=== PATIENT | female | born 1955 | race Caucasian/White ===

== ENCOUNTER → 2017-01-17 | Day surgery (SDC) | payer OTHER ==
[~2017-01-17] MED LIST: ACID REDUCER PO; GINGER500 MG PO; IRON325 MG PO; MULTI VITAMIN1 EACH PO; OMEGA 3 1,0001 EACH PO; OMEPRAZOLE40 M1; PHENERGAN PO; VITAMIN D400 UNI2 PO; ZOLOFT
--- NOTE | ~2017-01-17 | OR ---
Unit #: [id number] #: [id number] Patient: NITIN HART [id number] [address] [place], [place] [address] [id number] MR#: [id number] NAME: NITIN HART ROOM: Date of Procedure: 01/17/2017 Admission Date: 01/17/2017 Surgeon: Jesus Stearns M.D. : 1955 Attending Physician: Jesus Stearns M.D. OPERATIVE REPORT PREOPERATIVE DIAGNOSES Dysphagia and weight loss. PROCEDURES PERFORMED 1. Upper gastrointestinal endoscopy and biopsy. 2. upper gastrointestinal endoscopy and a dilation with a Martinez dilator. POSTOPERATIVE DIAGNOSES 1. 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 Appropriate biopsies were obtained. 2. Mild prepyloric antral gastritis. 3. Rest of the examination up to third part of duodenum was normal. No stricture or mucosal ring was present; however, the esophagus was empirically dilated with a 60-Azerbaijani Martinez dilator. In addition, biopsies were obtained from the antrum for CLOtest as well as from the distal esophagus to look for any evidence of intestinal metaplasia. RECOMMENDATIONS The patient being started on omeprazole 40 mg p.o. daily. She will be followed up in the office in 3 months' time. SEDATION USED MAC. DESCRIPTION OF PROCEDURE Following detailed explanation of potential risks and complications of an upper endoscopy, namely perforation, bleeding, and complication related to sedation, the patient was brought to GI lab and laid in the left lateral decubitus position. Lubricated tip of the Olympus video upper endoscope was passed through the bite block into the proximal esophagus under direct vision. The entire esophageal mucosa was examined. 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 The scope was then advanced into the gastric cavity and the latter was insufflated. A small hiatus hernia was traversed. Mucosa of the fundus, body, and antrum was examined and mild prepyloric antral erythema was noted indicating antral gastritis. Pylorus was intubated with visualization of the normal duodenal bulb and second and third part of the duodenum. Upon withdrawal and retroflexion; incisura, cardia, and greater curve was examined and biopsy was obtained from the antrum for CLOtest. The scope was then withdrawn in the distal esophagus. The entire esophageal mucosa was examined all the way up to Unit #: [id number] #: [id number] Patient: TANNER,NITIN pharynx. No additional findings were noted. A 60-[place]zerbaij[place] Martinez dilator was introduced through the oral cavity and advanced into the esophagus. Relook endoscopy did show minimal bleeding at the GE junction. This was easily controlled by washing with water. The scope was then withdrawn all the way up to pharynx. No additional findings were noted. The patient tolerated the procedure without any postprocedure complications. Dictated by... Tomi Roman/manish TD: 01/17/2017 13:17 JOB #: [id number] CC: Tracy Rosales M.D. OPERATIVE REPORT Page 1 of 1 X Jesus Stearns MD X PROCEDURE OPERATIVE NOTE
== END | disposition home or self-care (01) ==
LOC: COPS 10:17
DX: K21.0 Gastro-esophageal reflux disease with esophagitis (principal); K29.70 Gastritis, unspecified, without bleeding; K44.9 Diaphragmatic hernia without obstruction or gangrene; F17.210 Nicotine dependence, cigarettes, uncomplicated; Z85.528 Personal history of other malignant neoplasm of kidney; Z79.899 Other long term (current) drug therapy; Z90.5 Acquired absence of kidney
CPT/HCPCS: 87077; 88305